=== PATIENT | male | born 1985 | race Hispanic/Latino ===

== ENCOUNTER 2020-02-24 12:46 | Emergency (ER) | payer OTHER ==
[2020-02-25 16:49] LABS: SARS-CoV-2 MS2 Positive; SARS-CoV-2 N Gene Negative; SARS-CoV-2 S Gene Negative; SARS-CoV-2 orf1ab Negative
== END 2020-02-24 13:40 | disposition home or self-care (01) ==
LOC: ERS 12:46
DX: Z20.828 Contact with and (suspected) exposure to other viral communicable diseases (principal); F17.210 Nicotine dependence, cigarettes, uncomplicated
CPT/HCPCS: 87635; 99283; U0003

== ENCOUNTER 2022-03-18 05:55 | Emergency (ER) | payer OTHER, SELFPAY ==
[2022-03-18] MEDS ORDERED: Ketorolac Tromethamine 30 MG/ML VIAL ONE (06:34)
== END 2022-03-18 06:52 | disposition home or self-care (01) ==
LOC: ERS 05:55
DX: S39.012A Strain of muscle, fascia and tendon of lower back, initial encounter (principal); F17.210 Nicotine dependence, cigarettes, uncomplicated; X58.XXXA Exposure to other specified factors, initial encounter
CPT/HCPCS: 96372; 99283; J1885

== ENCOUNTER 2023-01-20 08:00 | Inpatient (IN) | payer BC, SELFPAY ==
[2023-01-20] MEDS ORDERED: Ketorolac Tromethamine 30 MG/ML VIAL ONE (08:23)
[2023-01-20 08:36] LABS: #Basophils 0.1 thou/uL (0.0-0.2); #Eosinphils 0.3 thou/uL (0.0-0.7); #Monocytes 0.5 thou/uL (0.11-0.59); #Neutrophils 4.8 thou/uL (1.40-6.50); %Basophils 0.9 % (0.0-1.0); %Eosinophils 3.1 % (0.0-10.0); %Lymphocytes 34.8 % (21.0-51.0); %Monocytes 5.9 % (0.0-10.0); %Neutrophils 55.3 % (42.0-75.0); Hemoglobin 16.1 g/dL (14.0-18.0); Mean Corpuscular HGB CONC 34.7 g/dL (32.0-36.0); Mean Corpuscular Hemoglobin 30.8 pg (27.0-31.0); Mean Corpuscular Volume 88.9 fl (78.0-98.0); Mean Platelet Volume 8.5 fL (7.4-10.4); Platelet Count 230 10x3/uL (130-400); RBC Distribution Width 12.2 % (11.5-14.5); Red Blood Cell (RBC) Count 5.23 mill/uL (4.70-6.10); White Blood Cell (WBC) Count 8.6 10x3/uL (4.8-10.8)
[2023-01-20] MEDS ORDERED: Ondansetron PF 4 MG/2 ML Vial ONE (08:54)
[2023-01-20] MEDS ORDERED: Morphine 4 MG/ML VIAL ONE ×2 (08:54→10:42)
[2023-01-20 08:57] LABS: Anion Gap 14 mmol/L (10-20); BUN (Urea Nitrogen) 12 mg/dL (8.9-20.6); Calc. Creatinine Clearance 0 mL/min (70-130); Carbon Dioxide 23 mmol/L (22-29); Chloride 106 mmol/L (98-107); Potassium 4.1 mmol/L (3.5-5.1); Sodium 139 mmol/L (136-145)
[2023-01-20 08:58] LABS: ALT (SGPT) 22 U/L (8-55); AST (SGOT) 21 U/L (5-34); Albumin 3.9 g/dL (3.5-5.0); Alkaline Phosphatase 44 U/L (40-110); Bilirubin, Total 0.3 mg/dL (0.2-1.2); Calcium 9.6 mg/dL (7.8-10.44); Estimated GFR 107; Globulin 2.6 g/dL (2.4-3.5); Glucose 135 mg/dL (70-105); Lipase 84 U/L (8-78); Protein, Total 6.5 g/dL (6.0-8.3)
[2023-01-20] MEDS ORDERED: Iopamidol 370 76% 100 ML VIAL ONE (10:06)
[2023-01-20] MEDS ORDERED: Magnevist 469MG/ML 20 ML VIAL ONE (10:25)
[2023-01-20] MEDS ORDERED: Pantoprazole 40 MG VIAL ONE (11:02)
[2023-01-20] MEDS ORDERED: Moisturizing Cream (Eucerin) 113 GM JAR TOP PRN (11:33)
[2023-01-20] MEDS ORDERED: Artificial Tear Sol 15 ML BOT EA EYE PRN (11:33)
[2023-01-20] MEDS ORDERED: Sodium Chloride 0.65% Nasal 44 ML BOT EA NARE PRN (11:33)
[2023-01-20] MEDS ORDERED: diphenhydrAMINE 25 MG CAP PO PRN (11:33)
[2023-01-20] MEDS ORDERED: Ondansetron PF 4 MG/2 ML Vial IVP PRN (11:33)
[2023-01-20] MEDS ORDERED: Morphine 4 MG/ML VIAL SLOW IVP PRN (11:37)
[2023-01-20 12:48] VITALS: BMI 26.2
[2023-01-20] MEDS: Nicotine 14 MG PATCH TD SCH (13:22)
[2023-01-20] MEDS: Lactated Ringer's 1,000 ML IV SCH ×2 (13:23→18:14)
[2023-01-20] MEDS: Acetaminophen 500 MG TAB PO SCH ×2 (13:23→18:12)
[2023-01-20] MEDS: Ketorolac Tromethamine 30 MG/ML VIAL IVP SCH ×2 (13:23→20:34)
[2023-01-20 13:43] LABS: Cardiac Risk 3.8 (Less than 4.5)
[2023-01-20] MEDS: Morphine 2 MG/ML VIAL SLOW IVP PRN ×2 (14:36→18:16)
[2023-01-21] MEDS: Acetaminophen 500 MG TAB PO SCH ×4 (01:30→18:14)
[2023-01-21] MEDS: Ketorolac Tromethamine 30 MG/ML VIAL IVP SCH ×5 (01:31→20:07)
[2023-01-21] MEDS: Lactated Ringer's 1,000 ML IV SCH ×5 (01:32→20:06)
[2023-01-21 06:57] LABS: #Eosinphils 0.4 thou/uL (0.0-0.7); #Lymphocytes 2.8 thou/uL (1.20-3.40); #Monocytes 0.6 thou/uL (0.11-0.59); #Neutrophils 3.7 thou/uL (1.40-6.50); %Basophils 0.4 % (0.0-1.0); %Lymphocytes 37.4 % (21.0-51.0); %Monocytes 7.5 % (0.0-10.0); %Neutrophils 49.7 % (42.0-75.0); Hemoglobin 13.8 g/dL (14.0-18.0); Mean Corpuscular HGB CONC 34.7 g/dL (32.0-36.0); Mean Corpuscular Hemoglobin 30.9 pg (27.0-31.0); Mean Corpuscular Volume 89.1 fl (78.0-98.0); Mean Platelet Volume 8.7 fL (7.4-10.4); Platelet Count 201 10x3/uL (130-400); RBC Distribution Width 12.1 % (11.5-14.5); Red Blood Cell (RBC) Count 4.48 mill/uL (4.70-6.10); White Blood Cell (WBC) Count 7.4 10x3/uL (4.8-10.8)
[2023-01-21 07:12] LABS: ALT (SGPT) 22 U/L (8-55); AST (SGOT) 19 U/L (5-34); Albumin 3.1 g/dL (3.5-5.0); Alkaline Phosphatase 39 U/L (40-110); Anion Gap 9 mmol/L (10-20); BUN (Urea Nitrogen) 6 mg/dL (8.9-20.6); Bilirubin, Total 0.5 mg/dL (0.2-1.2); Calc. Creatinine Clearance 126 mL/min (70-130); Calcium 8.6 mg/dL (7.8-10.44); Carbon Dioxide 25 mmol/L (22-29); Chloride 108 mmol/L (98-107); Estimated GFR 121; Globulin 2.1 g/dL (2.4-3.5); Glucose 106 mg/dL (70-105); Lipase 32 U/L (8-78); Potassium 3.8 mmol/L (3.5-5.1); Protein, Total 5.2 g/dL (6.0-8.3); Sodium 138 mmol/L (136-145); Triglycerides 119 mg/dL (Less than 150)
[2023-01-21] MEDS: Pantoprazole 40 MG VIAL IVP SCH (08:23)
[2023-01-21] MEDS: Morphine 2 MG/ML VIAL SLOW IVP PRN (11:15)
[2023-01-21] MEDS: Nicotine 14 MG PATCH TD SCH (11:22)
[2023-01-22] MEDS: Acetaminophen 500 MG TAB PO SCH ×3 (02:21→12:13)
[2023-01-22] MEDS: Ketorolac Tromethamine 30 MG/ML VIAL IVP SCH ×2 (02:21→07:56)
[2023-01-22] MEDS: Lactated Ringer's 1,000 ML IV SCH ×2 (06:55→09:41)
[2023-01-22] MEDS: Pantoprazole 40 MG VIAL IVP SCH (07:57)
[2023-01-22] MEDS ORDERED: Lactated Ringer's 1,000 ML IV SCH (11:15)
[2023-01-22] MEDS: Nicotine 14 MG PATCH TD SCH (12:13)
[2023-01-22 12:29] VITALS: BP 124/76; TEMP 98.2
== END 2023-01-22 13:45 | disposition home or self-care (01) | DRG 440 ==
LOC: ERS 08:00 → T4-A 12:30
PROVIDERS: ADMIT Family Medicine; ATTEND Internal Medicine
DX: K85.90 Acute pancreatitis without necrosis or infection, unspecified (principal); N28.1 Cyst of kidney, acquired; K76.89 Other specified diseases of liver; Z80.1 Family history of malignant neoplasm of trachea, bronchus and lung; Z83.3 Family history of diabetes mellitus; Z80.8 Family history of malignant neoplasm of other organs or systems; Z79.899 Other long term (current) drug therapy; F17.210 Nicotine dependence, cigarettes, uncomplicated
CPT/HCPCS: 36415; 74177; 74183; 76705; 80053; 80061; 83690; 84478; 85025; 93005; 96374; 96375; 96376; A9579; C9113; J1885; J2270; J2272; J2405; J7120; Q9967

== ENCOUNTER 2024-02-12 07:54 | Emergency (ER) | payer BC ==
[2024-02-12] MEDS ORDERED: Morphine 4 MG/ML VIAL ONE ×2 (09:08→09:17)
[2024-02-12] MEDS ORDERED: Ondansetron PF 4 MG/2 ML Vial ONE (09:09)
[2024-02-12 10:33] LABS: ALT (SGPT) 17 U/L (8-55); AST (SGOT) 18 U/L (5-34); Albumin 3.7 g/dL (3.5-5.0); Alkaline Phosphatase 51 U/L (40-110); Anion Gap 14 mmol/L (10-20); BUN (Urea Nitrogen) 20 mg/dL (8.9-20.6); Bilirubin, Total 1.2 mg/dL (0.2-1.2); Calc. Creatinine Clearance 0 mL/min (70-130); Calcium 9.4 mg/dL (7.8-10.44); Carbon Dioxide 20 mmol/L (22-29); Chloride 103 mmol/L (98-107); Estimated GFR 121; Globulin 3.4 g/dL (2.4-3.5); Glucose 132 mg/dL (70-105); Lipase 18 U/L (8-78); Protein, Total 7.1 g/dL (6.0-8.3); Sodium 133 mmol/L (136-145)
[2024-02-12 11:19] LABS: #Basophils 0.03 10x3/uL (0.0-0.2); %Basophils 0.2 % (0.0-1.0); %Eosinophils 1.1 % (0.0-10.0); %Lymphocytes 4.9 % (21.0-51.0); %Monocytes 3.1 % (0.0-10.0); %Neutrophils 90.3 % (42.0-75.0); Hematocrit 38.5 % (42.0-52.0); Hemoglobin 13.2 g/dL (14.0-18.0); Mean Corpuscular HGB CONC 34.3 g/dL (32.0-36.0); Mean Corpuscular Hemoglobin 29.9 pg (27.0-31.0); Mean Corpuscular Volume 87.3 fL (78.0-98.0); Mean Platelet Volume 9.7 fL (7.4-10.4); Platelet Count 293 10x3/uL (130-400); RBC Distribution Width 13.4 % (11.5-14.5); Red Blood Cell (RBC) Count 4.41 mill/uL (4.70-6.10)
[2024-02-12] MEDS ORDERED: Iopamidol-370 76% 500 ML MDV (1 ML CHARGE) ONE (13:50)
== END 2024-02-12 12:03 | disposition home or self-care (01) ==
LOC: ERS 07:54
DX: N28.1 Cyst of kidney, acquired (principal); D72.829 Elevated white blood cell count, unspecified; R19.7 Diarrhea, unspecified; R10.84 Generalized abdominal pain; R11.2 Nausea with vomiting, unspecified; C78.89 Secondary malignant neoplasm of other digestive organs; C78.7 Secondary malignant neoplasm of liver and intrahepatic bile duct; F17.210 Nicotine dependence, cigarettes, uncomplicated
CPT/HCPCS: 36415; 74177; 80053; 83605; 83690; 85025; 93005; 96374; 96375; J2270; J2405; Q9967

== ENCOUNTER 2024-07-30 08:42 | Emergency (ER) | payer BC, OTHER ==
[2024-07-30] MEDS ORDERED: Fluorescein Opthalmic Strip ONE (09:03)
[2024-07-30] MEDS ORDERED: Proparacaine 0.5% Opth 15 ML BOT ONE (09:04)
== END 2024-07-30 09:30 | disposition home or self-care (01) ==
LOC: ERS 08:42
DX: S05.02XA Injury of conjunctiva and corneal abrasion without foreign body, left eye, initial encounter (principal); H10.33 Unspecified acute conjunctivitis, bilateral; F17.210 Nicotine dependence, cigarettes, uncomplicated; X58.XXXA Exposure to other specified factors, initial encounter
CPT/HCPCS: 99282

== ENCOUNTER 2024-10-14 03:44 | Emergency (ER) | payer OTHER ==
[2024-10-14] MEDS ORDERED: Morphine 4 MG/ML VIAL ONE (04:31)
[2024-10-14 04:33] LABS: #Basophils 0.07 10x3/uL (0.0-0.2); %Basophils 0.6 % (0.0-1.0); %Eosinophils 5.3 % (0.0-10.0); %Lymphocytes 23.7 % (21.0-51.0); %Monocytes 6.7 % (0.0-10.0); %Neutrophils 63.3 % (42.0-75.0); Hematocrit 38.3 % (42.0-52.0); Hemoglobin 13.3 g/dL (14.0-18.0); Mean Corpuscular HGB CONC 34.7 g/dL (32.0-36.0); Mean Corpuscular Hemoglobin 29.9 pg (27.0-31.0); Mean Corpuscular Volume 86.1 fL (78.0-98.0); Platelet Count 265 10x3/uL (130-400); Red Blood Cell (RBC) Count 4.45 mill/uL (4.70-6.10)
[2024-10-14 04:58] LABS: Bacteria/HPF None Seen HPF (None Seen); Bilirubin Negative (Negative); Blood, Urine Negative (Negative); CAUTI Indications for Culture Pelvic or flank pain; Clarity Clear (Clear); Glucose, Urine (Dipstick) Normal (Negative); Ketone, Urine 10 mg/dL (Negative); Leukocyte Negative Leu/uL (Negative); Nitrite Negative (Negative); Protein, Urine (Dipstick) 20 mg/dL (Neg-Trace); RBC/HPF 0-3 HPF (0-3); Squamous Epithelial 0-3 HPF (0-3); Urobilinogen Normal mg/dL (Less than 2); WBC/HPF 0-3 HPF (0-3); pH, Urine 6.5 (5.0-9.0)
[2024-10-14 05:26] LABS: Urine Culture Reflex No No
[2024-10-14 06:33] LABS: ALT (SGPT) 10 U/L (Less than 45); AST (SGOT) 23 U/L (11-34); Albumin 3.8 g/dL (3.1-4.5); Alkaline Phosphatase 51 U/L (40-110); BUN (Urea Nitrogen) 13 mg/dL (8.9-20.6); Bilirubin, Total 0.4 mg/dL (0.3-1.2); Calc. Creatinine Clearance 0 mL/min (70-130); Calcium 9.2 mg/dL (7.8-10.44); Carbon Dioxide 22 mmol/L (22-29); Estimated GFR 121; Globulin 3.2 g/dL (2.4-3.5); Glucose 125 mg/dL (70-105); Lipase 23 U/L (8-78)
[2024-10-14 06:53] LABS: Anion Gap 15 mmol/L (10-20); Chloride 106 mmol/L (98-107); Potassium 3.5 mmol/L (3.5-5.1); Sodium 139 mmol/L (136-145)
[2024-10-14] MEDS ORDERED: Iopamidol 370 76% 100 ML VIAL ONE (12:50)
== END 2024-10-14 06:50 | disposition home or self-care (01) ==
LOC: ERS 03:44
DX: R10.13 Epigastric pain (principal); C78.89 Secondary malignant neoplasm of other digestive organs; C80.1 Malignant (primary) neoplasm, unspecified; F17.210 Nicotine dependence, cigarettes, uncomplicated
CPT/HCPCS: 74177; 80053; 81001; 83605; 83690; 85025; 87040; 87086; 96374; J2270